=== PATIENT | male | born 1965 ===

== ENCOUNTER 2016-07-29 00:24 | Inpatient (IN) | payer SELFPAY ==
--- NOTE | ~2016-07-29 | DS ---
Discharge Summary [facility] [address] [place]. [address] NAME: RASHAD RYAN LATASHA : 63 STATUS : DIS IN PAT#: [id number] AGE: 51 ADM/REG DATE : 07/29/16 MR#: [id number] REPORT SERV DATE: 07/30/16 DICTATED BY: FRANK NICHOLAS DATE: 07/29/16 REPORT STATUS : Draft TRANSCRIBED BY: MODTalha DATE: 07/29/16 ADMISSION DATE: 07/29/2016 DISCHARGE DATE: 07/29/2016 DISCHARGE DIAGNOSES: 1. Inferior myocardial infarction-subacute. 2. Ischemic cardiomyopathy. 3. Hypertension. 4. Type 2 diabetes. 5. Tobacco abuse. PROCEDURES PERFORMED THIS ADMISSION: Coronary angiography and attempted percutaneous coronary intervention to the right coronary artery. DISCHARGE MEDICATIONS: 1. Aspirin 81 mg p.o. daily. 2. Plavix 75 mg p.o. daily. 3. Atorvastatin 40 mg p.o. at bedtime. 4. Carvedilol 3.125 mg p.o. twice daily. 5. NovoLog insulin sliding scale-as the patient's previous home dose. 6. Levemir insulin 25 units subcutaneously at bedtime. 7. Metformin 500 mg p.o. twice daily-restart on 07/30/2016. 8. Lisinopril 10 mg p.o. twice daily. HOSPITAL COURSE: This is a 51-year-old man with no previous cardiac history. According to the patient and his family, the patient experienced the onset of acute severe epigastric/substernal chest pain about one month ago. The patient did not seek medical attention at that time. He has had waxing and waning indigestion-type chest pain since that time. The patient's apparently developed pelvic pain late last night, 07/28/2016. Due to the patient's ongoing symptoms, he decided to go to the emergency room with his . At the time of his initial evaluation, a 12-lead ECG was performed. This met borderline criteria for an inferior ST-segment elevation myocardial infarction. Of note, the patient did have Q-waves in leads II, III, and aVF with 1 mm in lead III alone. He did have less than [address]-depression in lead aVL. Due to ongoing symptoms, it was felt that the patient should proceed with emergency coronary angiography and primary percutaneous coronary intervention. The patient was taken to the cardiac catheterization lab. 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 Extensive efforts were made to revascularize the right coronary artery percutaneously. Of note, the patient did have extensive abho-es-mycke collaterals, which filled the distal right coronary artery, right posterolateral system, and right posterior descending artery. A wire was able to pass the lesion, but no balloon was able to cross. A Finecross catheter was also not able to cross the lesion. It was felt that this was most likely due to a subintimal position of the guidewire. Efforts were made to reposition the guidewire with 2 separate guidewires including a MiracleBros 4.5 and a ChoICE PT wire. The MiracleBros wire Discharge Summary [facility] [address] [facility] [place]. [address] NAME: RASHAD RYAN LATASHA : 63 STATUS : DIS IN PAT#: [id number] AGE: 51 ADM/REG DATE : 07/29/16 MR#: [id number] REPORT SERV DATE: 07/30/16 DICTATED BY: FRANK NICHOLAS DATE: 07/29/16 REPORT STATUS : Draft TRANSCRIBED BY: THOM DATE: 07/29/16 was unable to pass the target lesion, and the ChoICE PT also entered, what appeared to be, subintimal flaps. At this time, the patient was chest pain-free and it was felt that further aggressive attempts at PCI had a poor risk benefit ratio. The procedure was therefore discontinued. The patient was admitted to the Cardiac Intensive Care Unit for monitoring. His troponin peaked at approximately 8.0 from an initial value of approximately 4.5 at [facility] Emergency Room. The patient's maximal CK was 220. The patient was started on carvedilol and had no further chest pain. He was ambulated and denies dyspnea or chest pain at this time. The patient will be discharged to home. He will continue aspirin and Plavix for at least 1 year. He will continue carvedilol and atorvastatin. He will continue his home dose of lisinopril. I have strongly encouraged the patient to stop smoking. He is not interested in a prescription for Chantix at this time. The patient will have followup with myself in two weeks. He will have followup with his primary care provider in one week. DISPOSITION: Discharged to home. DISCHARGE CONDITION: Stable. KAREN/THOM Frank Nicholas MD / [id number]
--- NOTE | ~2016-07-29 | HP ---
History And Physical [place] [id number] [facility] [place]. [address] NAME: RASHAD GARCIA LATASHA : 63 STATUS : ADM IN [facility]#: [id number] AGE: 51 ADM/REG DATE : 07/29/16 MR#: [id number] REPORT SERV DATE: 07/29/16 DICTATED BY: FRANK NICHOLAS DATE: 07/29/16 REPORT STATUS : Draft TRANSCRIBED BY: MODTalha DATE: 07/29/16 DATE OF ADMISSION: 07/29/2016 CARDIOLOGY ADMISSION HISTORY AND PHYSICAL IDENTIFYING DATA: The patient is a 51-year-old man with no previous cardiovascular history. CHIEF COMPLAINT: One-month history of epigastric "indigestion" type chest pain. HISTORY OF PRESENT ILLNESS: Mr. Garcia is a 51-year-old man who was in his usual state of health until approximately one month ago. According to the patient's family he had a fairly severe episode of epigastric indigestion type chest pain about four to five weeks ago. The patient did not seek medical therapy at that time. The patient has continued to have waxing and waning chest pain since the event 1 month ago. The patient reports that his indigestion type discomfort was persistent all day today. The patient was not planning on seeking medical evaluation, but his was experiencing "ovary problems" and so the patient and his decided to present to [facility] emergency room together. A 12-lead ECG was performed at [facility] ER. This showed, what appeared to be, an evolving inferior ST- segment elevation myocardial infarction. The patient was describing some chest discomfort at that time, and was therefore transferred to [facility] for primary percutaneous coronary intervention. PAST MEDICAL HISTORY: 1. Type 2 diabetes-insulin dependent. 2. Hypertension. PAST SURGICAL HISTORY: The patient has had a cranial trauma requiring eye surgery, not otherwise specified. The patient has had hemorrhoid surgery. Surgical history is otherwise negative. FAMILY HISTORY: The patient reports his father of myocardial infarction at age 57. There is no other significant family history of early coronary heart disease or sudden cardiac . SOCIAL HISTORY: The patient is a one-half pack per day smoker for 34 years. He drinks alcohol occasionally. He denies recreational drug use. He is . ALLERGIES: THE PATIENT REPORTS AN ALLERGY TO PENICILLIN. HOME MEDICATIONS: These include lisinopril, metformin, and insulin. REVIEW OF SYSTEMS: An abbreviated 12-system review was performed. This is noncontributory except for the pertinent positives and negatives noted in the history of present illness above. PHYSICAL EXAMINATION: History And Physical [address] [place]. [address] NAME: RASHAD GARCIA LATASHA : 63 STATUS : ADM IN [facility]#: [id number] AGE: 51 ADM/REG DATE : 07/29/16 MR#: [id number] REPORT SERV DATE: 07/29/16 DICTATED BY: FRANK NICHOLAS DATE: 07/29/16 REPORT STATUS : Draft TRANSCRIBED BY: THOM DATE: 07/29/16 VITAL SIGNS: The patient is afebrile, heart rate is approximately 85 beats per minute and regular, respirations 16, oxygen saturation is 98% on 2 L nasal cannula, blood pressure is 110/70 mmHg. CONSTITUTIONAL: The patient is a mildly overweight white man, in no acute distress. Neck. EYES: PERRL, EOMI, clear conjunctiva. HEAD/MNT: NCAT with moist mucous membranes and grossly normal hard and soft palate. NECK: Supple with no obvious thyromegaly or lymphadenopathy CARDIOVASCULAR: There is a regular rhythm with a normal S1 and a physiologically split second heart sound. No significant murmurs, rubs, or gallops are noted. PMI - normal location and character. Normal jugular venous pressure. No carotid bruits noted bilaterally. PULMONARY: There is globally decreased air movement with expiratory wheezing and a prolonged expiratory phase. No rales or dullness to percussion are noted. ABDOMINAL: Soft, non-tender, non-distended with no hepatosplenomegaly noted. EXTREMITIES: No clubbing, cyanosis or edema. MUSCULOSKELETAL: Grossly normal strength and range of motion in all extremities INTEGUMENTARY: Skin appears intact with no bruises, wounds or active lesions noted NEURO/PSYC: Alert and oriented x3, with no dysarthria, facial droop or lateralizing weakness noted. 12-LEAD EKG: The 12-lead EKG shows Q-waves in leads II, III, and aVF with [address]-segment elevation seen in lead III along with slightly less than [address]-segment elevation in leads II and aVF. There is 1.[address] depression in lead aVL. Taken as overall, the EKG suggest an evolving inferior ST-segment elevation myocardial infarction. LABORATORY DATA: The patient's troponin I at [facility] is approximately 4.1. Creatinine is approximately 0.75. Other labs are pending at this time. CORONARY ANGIOGRAPHY: Please see official report for full details. 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 Efforts were made at revascularization, however, the lesion appears to be a chronic total occlusion. The subintimal space was entered with a guidewire, and a balloon was not able to be passed into the distal vessel. The patient's chest pain resolved during the procedure, and the procedure was therefore discontinued. The patient's left ventricular ejection fraction is approximately 40% with basal and mid inferior hypokinesis and normal function of the remainder of the myocardial segments. The patient has no significant occlusive disease of the left anterior descending, left main, ramus intermedius, or left circumflex coronary arteries. There are extensive jndk-yc-wdvso collaterals which fill the distal right coronary artery. ASSESSMENT AND PLAN: 1. Evolving inferior ST-segment elevation myocardial infarction: The patient's event most likely occurred one month ago. The patient's anatomy is consistent with a chronic total occlusion. He will be started on medical therapy with carvedilol. We will consider addition of a long-acting nitrate if his pain is unrelieved. We will start aspirin now. The patient did have a subintimal entry of the guidewire, with a proximal vessel dissection. We will wait for 24 hours before starting dual anti-platelet History And Physical [address] [address] NAME: RASHAD GARCIA LATASHA : 63 STATUS : ADM IN [facility]#: [id number] AGE: 51 ADM/REG DATE : 07/29/16 MR#: [id number] REPORT SERV DATE: 07/29/16 DICTATED BY: FRANK NICHOLAS DATE: 07/29/16 REPORT STATUS : Draft TRANSCRIBED BY: MODTalha DATE: 07/29/16 therapy, but start Plavix assuming the patient has no significant complications related to his attempted PCI. We will start atorvastatin 40 mg p.o. at bedtime. 2. Type 2 diabetes: We will continue the patient's home regimen except for metformin, which will be held for 48 hours. The patient will be covered with a sliding scale insulin. 3. Hypertension: The patient's blood pressure is well controlled at this time. We will add carvedilol, and restart lisinopril after 24 hours. KAREN/THOM Frank Nicholas MD / [id number]
[2016-07-29 02:08] LABS: CREATININE 0.7 MG/DL (0.70-1.30)
[2016-07-29 02:26] LABS: BASOPHILS 0.2 %; BASOPHILS ABSOLUTE 0.02 10/3/uL (0.0-0.16); EOSINOPHILS 1.7 %; EOSINOPHILS ABSOLUTE 0.15 10/3/uL (0.0-0.53); HEMATOCRIT 41.8 % (40.0-51.0); HEMOGLOBIN 14.5 g/dL (13.6-17.8); IMMATURE GRANULOCYTES 0.2 %; IMMATURE GRANULOCYTES ABSOLUTE 0.02 10/3/uL (0.0-0.11); LYMPHOCYTES 24.9 %; LYMPHOCYTES ABSOLUTE 2.25 10/3/uL (0.67-4.30); MEAN CORPUS HGB CONC 34.7 g/dL (32.0-36.0); MEAN CORPUSCULAR HEMOGLOB 32.8 pg (26.0-34.0); MEAN CORPUSCULAR VOLUME 94.6 fL (80-100); MEAN PLATELET VOLUME 11.6 fL (9.2-13.0); MONOCYTES 9.1 %; MONOCYTES ABSOLUTE 0.82 10/3/uL (0.21-1.20); NEUTROPHILS 63.9 %; NEUTROPHILS ABSOLUTE 5.79 10/3/uL (2.02-8.40); PLATELET COUNT 256 10/3/uL (150-400); RBC DISTRIBUTION WIDTH 13.8 % (12.0-16.0); RED CELL COUNT 4.42 10/6/uL (4.7-6.1); WHITE BLOOD CELLS 9.1 10/3/uL (4.5-10.5)
[2016-07-29 02:32] LABS: MANUAL DIFF NO %
[2016-07-29 02:46] LABS: BUN (BLOOD UREA NITROGEN) 10 MG/DL (6-23); CALCIUM, SERUM 8.8 MG/DL (8.5-10.4); CHLORIDE, SERUM 101 MMOL/L (96-112); CK-MB 6.8 NG/ML; CO2 (CARBON DIOXIDE) 29 MMOL/L (24-34); CPK 145 U/L (0-200); CREATININE 0.78 MG/DL (0.70-1.30); GFR AFRICAN AMERICAN 120 ML/MIN (>=60); GFR NON AFRICAN AMERICAN 104 ML/MIN (>=60); SODIUM, SERUM 142 MMOL/L (135-148)
[2016-07-29 02:47] LABS: CKMB INDEX (NOT ORD) 4.7; GLUCOSE, SERUM 427 MG/DL (60-99); TROPONIN I 4.37 NG/ML (<0.05)
[2016-07-29 04:39] LABS: BASOPHILS 0.5 %; BASOPHILS ABSOLUTE 0.05 10/3/uL (0.0-0.16); EOSINOPHILS 1.8 %; EOSINOPHILS ABSOLUTE 0.17 10/3/uL (0.0-0.53); HEMATOCRIT 42.2 % (40.0-51.0); HEMOGLOBIN 14.5 g/dL (13.6-17.8); IMMATURE GRANULOCYTES 0.3 %; IMMATURE GRANULOCYTES ABSOLUTE 0.03 10/3/uL (0.0-0.11); LYMPHOCYTES 31.8 %; LYMPHOCYTES ABSOLUTE 3.05 10/3/uL (0.67-4.30); MEAN CORPUS HGB CONC 34.4 g/dL (32.0-36.0); MEAN CORPUSCULAR HEMOGLOB 32.8 pg (26.0-34.0); MEAN CORPUSCULAR VOLUME 95.5 fL (80-100); MEAN PLATELET VOLUME 11.3 fL (9.2-13.0); MONOCYTES 8.4 %; MONOCYTES ABSOLUTE 0.81 10/3/uL (0.21-1.20); NEUTROPHILS 57.2 %; NEUTROPHILS ABSOLUTE 5.48 10/3/uL (2.02-8.40); PLATELET COUNT 266 10/3/uL (150-400); RED CELL COUNT 4.42 10/6/uL (4.7-6.1); WHITE BLOOD CELLS 9.6 10/3/uL (4.5-10.5)
[2016-07-29 04:40] LABS: MANUAL DIFF NO %
[2016-07-29 04:55] LABS: A/G RATIO 1.2 (0.7-1.9); ALBUMIN 3.3 G/DL (3.5-5.0); ALKALINE PHOSPHATASE 100 U/L (45-117); BUN (BLOOD UREA NITROGEN) 9 MG/DL (6-23); CALCIUM, SERUM 8.4 MG/DL (8.5-10.4); CHLORIDE, SERUM 102 MMOL/L (96-112); CK-MB 11.5 NG/ML; CO2 (CARBON DIOXIDE) 29 MMOL/L (24-34); CREATININE 0.67 MG/DL (0.70-1.30); GFR AFRICAN AMERICAN 128 ML/MIN (>=60); GFR NON AFRICAN AMERICAN 110 ML/MIN (>=60); GLOBULIN 2.8 G/DL (2.5-4.1); POTASSIUM, SERUM 3.8 MMOL/L (3.5-5.3); SGOT(AST) 30 U/L (5-40); SGPT(ALT) 24 U/L (5-65); SODIUM, SERUM 142 MMOL/L (135-148); TOTAL BILIRUBIN 0.3 MG/DL (0-1.2); TOTAL PROTEIN 6.1 G/DL (6.0-8.5)
[2016-07-29 05:03] LABS: CKMB INDEX (NOT ORD) 6.8; CPK 168 U/L (0-200); GLUCOSE, SERUM 341 MG/DL (60-99); TROPONIN I 7.29 NG/ML (<0.05)
[2016-07-29 11:25] LABS: CK-MB 17.4 NG/ML
[2016-07-29 11:28] LABS: CKMB INDEX (NOT ORD) 7.9; TROPONIN I 8.35 NG/ML (<0.05)
[2016-07-29] MEDS ORDERED: PRIN10 PO (14:00)
[2016-07-29] MEDS ORDERED: NOVOLOG SC (14:02)
[2016-07-29] MEDS ORDERED: GLUCPH PO (14:02)
[2016-07-29] MEDS ORDERED: LEVEMIR SC (14:03)
[2016-07-29] MEDS ORDERED: ASAB PO (16:53)
[2016-07-29] MEDS ORDERED: LIPITOR40 PO (16:53)
[2016-07-29] MEDS ORDERED: COREG3 PO (16:55)
[2016-07-29] MEDS ORDERED: PLAVIX PO (16:58)
== END 2016-07-29 17:43 | disposition home or self-care (01) | DRG 282 ==
LOC: SSU2 00:24 → CCU 03:00
PROVIDERS: Internal Medicine Cardiovascular Disease
PROC: 4A023N7 Measurement of Cardiac Sampling and Pressure, Left Heart, Percutaneous Approach (ICD-10-PCS; principal; 2016-07-29)
PROC: B2151ZZ Fluoroscopy of Left Heart using Low Osmolar Contrast (ICD-10-PCS; 2016-07-29)
PROC: B2111ZZ Fluoroscopy of Multiple Coronary Arteries using Low Osmolar Contrast (ICD-10-PCS; 2016-07-29)
DX: I21.19 ST elevation (STEMI) myocardial infarction involving other coronary artery of inferior wall (principal); E11.9 Type 2 diabetes mellitus without complications; I10 Essential (primary) hypertension; I25.5 Ischemic cardiomyopathy; I25.10 Atherosclerotic heart disease of native coronary artery without angina pectoris; Z72.0 Tobacco use; Z79.02 Long term (current) use of antithrombotics/antiplatelets; Z79.82 Long term (current) use of aspirin; Z79.4 Long term (current) use of insulin; Z88.0 Allergy status to penicillin; Z88.5 Allergy status to narcotic agent
CPT/HCPCS: 71010; 80048; 80053; 82550; 82553; 82962; 83735; 83880; 84132; 84295; 84484; 85025; 85347; 87641; 93005; 93458; 99152; 99153; A9270-GY; C1725; C1769; C1887; C1894; J0583; J2250; J2405; J3010; Q9967